=== PATIENT | female | born 1990 | race Caucasian/White ===

== ENCOUNTER 2018-05-06 22:22 | Emergency (ER) ==
[2018-05-06 22:34] VITALS: BP 118/81; TEMP 98.9; BMI 31.8
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
== END 2018-05-06 23:23 | disposition home or self-care (01) ==
LOC: ED 22:22
DX: S00.03XA Contusion of scalp, initial encounter (principal); Y04.2XXA Assault by strike against or bumped into by another person, initial encounter; F17.210 Nicotine dependence, cigarettes, uncomplicated
CPT/HCPCS: 99282